=== PATIENT | female | born 1990 | race Caucasian/White ===

== ENCOUNTER 2017-07-27 16:59 | Emergency (ER) | payer SELFPAY ==
[2017-07-27 17:03] VITALS: BP 108/61; PULSE 81; TEMP 98.4; BMI 22.8
[2017-07-27 17:37] LABS: URINE APPEARANCE CLOUDY; URINE BILIRUBIN NEGATIVE (NEGATIVE); URINE BLOOD 2+ (NEGATIVE); URINE COLOR YELLOW; URINE GLUCOSE (UA) NEGATIVE (NEGATIVE); URINE KETONE NEGATIVE (NEGATIVE); URINE NITRITE NEGATIVE (NEGATIVE); URINE UROBILINOGEN NEGATIVE mg/dL (0.2-1.0)
[2017-07-27 17:48] LABS: URINE LEUK ESTERASE 2+ (NEGATIVE); URINE PROTEIN 2+ (NEGATIVE)
[2017-07-27 17:50] LABS: URINE BACTERIA FEW /hpf (NONE SEEN); URINE MUCUS FEW; URINE RBC 107 /hpf (0-3); URINE WBC 112 /hpf (3-5)
--- NOTE | 2017-07-27 18:21 | PDOC ---
History of Present Illness - General Chief Complaint: Urinary Problem Stated Complaint: R/O UTI Time Seen by Provider: 07/27/17 18:04 History Source: Patient Exam Limitations: No Limitations - History of Present Illness Initial Comments: 07/27/17 18:17 Patient is a 26-year-old female, no significant medical history currently no medication presents for sudden onset of urinary pain, urgency. Patient denies any fever. Denies any back pain. Sexual encounter was on Wednesday patient is requesting STD testing although feels that is unlikely. Patient states she did notice blood on the paper when wiping which concerned her prompting her to come to emergency department Past Medical History: Denies. Allergies: No known allergies Medications: None Family History: Non-contributory Social History: Denies smoking, alcohol use, or IVDU Review of Systems GENERAL/CONSTITUTIONAL: No fever or chills. No weakness. No weight change. HEAD, EYES, EARS, NOSE AND THROAT: No change in vision. No ear pain or discharge. No sore throat. CARDIOVASCULAR: No chest pain or shortness of breath. RESPIRATORY: No cough, wheezing, or hemoptysis. GASTROINTESTINAL: No nausea, vomiting, diarrhea or constipation. No rectal bleeding. GENITOURINARY: Sudden onset of dysuria and frequency. Hematuria MUSCULOSKELETAL: No joint or muscle swelling or pain. No neck or back pain. SKIN No rash or easy bruising. NEUROLOGIC: No headache, vertigo, loss of consciousness, or loss of sensation. PSYCHIATRIC: No depression or anxiety. ENDOCRINE: No increased thirst. No abnormal weight change. HEMATOLOGIC/LYMPHATIC: No anemia, easy bleeding, or history of blood clots. ALLERGIC/IMMUNOLOGIC: No hives or skin allergy. No latex allergy. Physical Exam: GENERAL: The patient is awake, alert, and fully oriented, in no acute distress. EYES: Pupils equal, round and reactive to light, extraocular movements intact, sclera anicteric, conjunctiva clear. ENT: Ears normal, nares patent, oropharynx clear without exudates. Moist mucous membranes. No uvula deviation NECK: Normal range of motion, supple without lymphadenopathy, JVD, or masses. LUNGS: Breath sounds equal, clear to auscultation bilaterally. No wheezes, and no crackles. HEART: Regular rate and rhythm, normal S1 and S2 without murmur, rub or gallop. ABDOMEN: Soft, tender to mid lower abdomen, normoactive bowel sounds. No guarding, no rebound. No masses. No bruising or abrasions MUSCULOSKELETAL: Normal range of motion, no edema. No clubbing or cyanosis. No cords, erythema, or tenderness. No CVA Tenderness with fist. NEUROLOGICAL: Cranial nerves II through XII grossly intact. Normal speech, normal gait. SKIN: Warm, Dry, normal turgor, no rashes or lesions noted. 07/27/17 18:21 Past History - Past Medical History Allergies/Adverse Reactions: Allergies Allergy/AdvReac Type Severity Reaction Status Date / Time glory flavor Allergy Swelling Verified 07/27/17 17:03 strawberry [[place]] Allergy Swelling Verified 07/27/17 17:03 Home Medications: Ambulatory Orders Nitrofurantoin Monohyd/M-Cryst [Macrobid -] 100 mg PO BID #14 capsule 07/27/17 Phenazopyridine HCl [Pyridium -] 200 mg PO TID #18 tablet 07/27/17 - Surgical History Abdominal Surgery: Yes (LIPOSUCTION) - Immunization History Immunization Up to Date: Yes - Psycho/Social/Smoking Cessation Hx Anxiety: No Suicidal Ideation: No Smoking Status: No Smoking History: Never smoked Have you smoked in the past 12 months: Yes Number of Cigarettes Smoked Daily: 2 Information on smoking cessation initiated: No Hx Alcohol Use: No Drug/Substance Use Hx: No Substance Use Type: None *Physical Exam - Vital Signs Last Vital Signs Temp Pulse Resp BP Pulse Ox 98.4 F 81 18 108/61 99 07/27/17 17:01 07/27/17 17:01 07/27/17 17:01 07/27/17 17:01 07/27/17 17:01 ED Treatment Course - ADDITIONAL ORDERS Additional order review: Laboratory Results 07/27/17 17:20 Urine Color Yellow Urine Appearance Cloudy Urine pH 5.0 Urine Protein 2+ H Urine Glucose (UA) Negative Urine Ketones Negative Urine Blood 2+ H Urine Nitrite Negative Urine Bilirubin Negative Urine Urobilinogen Negative Ur Leukocyte Esterase 2+ H Urine RBC 107 Urine WBC 112 Ur Epithelial Cells Many Urine Bacteria Few Urine Mucus Few Urine HCG, Qual Negative Medical Decision Making - Medical Decision Making 07/27/17 18:20 A/P: Patient here for evaluation of sudden onset of dysuria and frequency, urinalysis, urine sent. Laboratory Results - last 24 hr 07/27/17 17:20 Urine Color Yellow Urine Appearance Cloudy Urine pH 5.0 Urine Protein 2+ H Urine Glucose (UA) Negative Urine Ketones Negative Urine Blood 2+ H Urine Nitrite Negative Urine Bilirubin Negative Urine Urobilinogen Negative Ur Leukocyte Esterase 2+ H Urine RBC 107 Urine WBC 112 Ur Epithelial Cells Many Urine Bacteria Few Urine Mucus Few Urine HCG, Qual Negative Clinical findings consistent with a urinary tract infection. Will start patient on Macrobid and Pyridium, strict follow-up if symptoms persist patient to call in one week for results of gonorrhea Chlamydia. If positive will need to return for treatment I discussed the physical exam findings, ancillary test results and final diagnoses with the patient. I answered all of the patient's questions. The patient was satisfied with the care received and felt comfortable with the discharge plan and treatment plan. The patient will call to arrange follow-up and will return to the Emergency Department with any new, persistent or worsening symptoms. *DC/Admit/Observation/Transfer Diagnosis at time of Disposition: Urinary tract infection Qualifiers: Urinary tract infection type: site unspecified Hematuria presence: with hematuria Qualified Code(s): N39.0 - Urinary tract infection, site not specified ; R31.9 - Hematuria, unspecified - Discharge Dispostion Disposition: HOME Condition at time of disposition: Good Admit: No - Prescriptions Prescriptions: Nitrofurantoin Monohyd/M-Cryst [Macrobid -] 100 mg PO BID #14 capsule Phenazopyridine HCl [Pyridium -] 200 mg PO TID #18 tablet - Referrals Referrals: Devin Garcia MD [Staff Physician] - - Patient Instructions Printed Discharge Instructions: Urinary Tract Infection Additional Instructions: Increase fluids Refrain from sexual activity for at least 2 weeks Please take antibiotics as prescribed Please call [phone] in one week for results of gonorrhea Chlamydia testing If any increased pain, fever, back pain, blood in urine or other concerns return to ER
== END 2017-07-27 18:28 | disposition home or self-care (01) ==
LOC: JERFT 16:59
DX: N39.0 Urinary tract infection, site not specified (principal); R31.9 Hematuria, unspecified
CPT/HCPCS: 36415; 81003; 81015; 84703; 87086; 87491; 87591; 99281-25

== ENCOUNTER 2019-01-25 14:29 | Emergency (ER) | payer SELFPAY ==
[2019-01-25 14:41] VITALS: BP 110/60; PULSE 101; TEMP 98.1; BMI 23.8
--- NOTE | 2019-01-25 14:46 | PDOC ---
Rapid Medical Evaluation Chief Complaint: Sore Throat Time Seen by Provider: 01/25/19 14:36 Medical Evaluation: Allergies Allergy/AdvReac Type Severity Reaction Status Date / Time glory flavor Allergy Swelling Verified 01/25/19 14:39 strawberry [[place]] Allergy Swelling Verified 01/25/19 14:39 01/25/19 14:40 c/o sore throat and nasal congestion x 1 day. son is here with similar complaints. no fever Pe: patient alert ox3 pharyngeal erythema, A: pharyngitis P: rapid strep, patient to the Er for further management of care Discharge Disposition - Diagnosis Sore throat - Referrals - Patient Instructions - Post Discharge Activity
--- NOTE | 2019-01-25 15:38 | PDOC ---
History of Present Illness - General Chief Complaint: Sore Throat Stated Complaint: THROAT PAIN Time Seen by Provider: 01/25/19 14:36 - History of Present Illness Initial Comments: 01/25/19 15:34 28-year-old female without comorbidities presents for evaluation of sore throat without fever times one day. Her child is also sick with the same symptoms with a negative rapid strep and influenza swab today. Past History - Past Medical History Allergies/Adverse Reactions: Allergies Allergy/AdvReac Type Severity Reaction Status Date / Time glory flavor Allergy Swelling Verified 01/25/19 14:39 strawberry [[place]] Allergy Swelling Verified 01/25/19 14:39 Home Medications: Ambulatory Orders NK [No Known Home Medication] 01/25/19 - Surgical History Abdominal Surgery: Yes (LIPOSUCTION) - Immunization History Immunization Up to Date: Yes - Suicide/Smoking/Psychosocial Hx Smoking Status: No Smoking History: Never smoked Have you smoked in the past 12 months: Yes Number of Cigarettes Smoked Daily: 2 Hx Alcohol Use: No Drug/Substance Use Hx: No Substance Use Type: None Review of Systems - Review of Systems Constitutional: No: Fever HEENTM: Yes: Throat Pain *Physical Exam - Vital Signs Last Vital Signs Temp Pulse Resp BP Pulse Ox 98.1 F 101 H 18 110/60 100 01/25/19 14:39 01/25/19 14:39 01/25/19 14:39 01/25/19 14:39 01/25/19 14:39 - Physical Exam Comments: 01/25/19 15:35 HEAD: NC/AT EYES: Conjuntiva clear Ears: Canals and TM's normal NOSE: No d/c THROAT: Moist mucous membrances, oral pharanx clear, uvula midline NECK: Supple without adenopathy CARDIAC: S1 S2 LUNGS: CTA Full and Equal breath sounds ABDOMEN: Soft NT ND MS: Full ROM in all joints without edema NEUROLOGIC: No gross sensory or motor deficits, NVID SKIN: Normal color and temperature no lesions or rashes Moderate Sedation - Procedure Monitoring Vital Signs: Procedure Monitoring Vital Signs Temperature 98.1 F 01/25/19 14:39 Pulse Rate 101 H 01/25/19 14:39 Respiratory Rate 18 01/25/19 14:39 Blood Pressure 110/60 01/25/19 14:39 O2 Sat by Pulse Oximetry (%) 100 01/25/19 14:39 Medical Decision Making - Medical Decision Making 01/25/19 15:35 Benign examination with 1 day of symptoms I will have her follow-up with her PCP for further evaluation and treatment options. Advised on Tylenol and Motrin for pain. *DC/Admit/Observation/Transfer Diagnosis at time of Disposition: Sore throat, Viral pharyngitis - Discharge Dispostion Disposition: HOME Condition at time of disposition: Stable Decision to Admit order: No - Referrals Referrals: Charlie Ontiveros [Non Staff, Medical] - - Patient Instructions Printed Discharge Instructions: Viral Pharyngitis, DI for Viral Pharyngitis Additional Instructions: Return to the emergency room for worsening symptoms. Please follow-up with primary care physician in one to 2 days for further evaluation and treatment options Tylenol and Motrin as directed for pain. Warm salt water gargles 5-6 times a day will help with the sore throat. Return to the emergency room for worsening symptoms. - Post Discharge Activity
== END 2019-01-25 15:41 | disposition home or self-care (01) ==
LOC: JERFT 14:29
DX: J02.9 Acute pharyngitis, unspecified (principal); B97.89 Other viral agents as the cause of diseases classified elsewhere
CPT/HCPCS: 87070; 87880; 99281-25